=== PATIENT | female | born 1990 | race American Indian/Alaskan Native ===

== ENCOUNTER 2020-08-20 16:17 | Emergency (ER) | payer OTHER ==
[2020-08-20 17:08] VITALS: BP 113/75
[2020-08-20] MEDS ORDERED: ACETAMINOPHEN 500 MG TAB PO ONE (20:05)
[2020-08-20 20:16] LABS: Basophils # (Auto) 0.1 K/mm3 (0.0-0.1); Basophils % (Auto) 0.9 % (0.0-1.8); Eosinophils # (Auto) 0.2 K/mm3 (0.0-0.4); Eosinophils % (Auto) 3.3 % (0.0-4.3); Hematocrit 39.8 % (30.3-42.9); Hemoglobin 13.3 gm/dl (10.1-14.3); Lymphocytes # (Auto) 2.7 K/mm3 (1.2-5.4); Lymphocytes % (Auto) 42.2 % (13.4-35.0); Mean Corpuscular HGB Conc 33 % (30-34); Mean Corpuscular Volume 87 fl (79-97); Monocytes # (Auto) 0.8 K/mm3 (0.0-0.8); Monocytes % (Auto) 12.8 % (0.0-7.3); Platelet Count 307 K/mm3 (140-440); Red Blood Count 4.58 M/mm3 (3.65-5.03); Red Cell Distribution Width 14.1 % (13.2-15.2)
[2020-08-20 20:26] LABS: Bacteria,Urine 2+ /HPF (Negative); Bilirubin,Urine NEG (Negative); Blood,Urine NEG (Negative); Color,Urine Yellow (Yellow); Mucus,Urine 3+ /HPF
[2020-08-20 20:28] LABS: HCG Qualitative,Urine Negative (Negative)
[2020-08-20 20:47] LABS: Alanine Aminotransferase 28 units/L (7-56); Albumin 4.1 g/dL (3.9-5); Blood Urea Nitrogen 12 mg/dL (7-17); Hemolysis Index 10
[2020-08-20 20:58] LABS: BUN/Creatinine Ratio 17
--- NOTE | 2020-08-20 21:07 | Emergency Department Report ---
ED Abdominal Pain HPI - General Chief Complaint: Abdominal Pain Stated Complaint: ABD PAIN Source: patient Mode of arrival: Ambulatory Limitations: No Limitations - History of Present Illness Initial Comments: Patient is a 30-year-old -Algerian female with no past medical history presents to the ED with complaint of acute onset persistent diffuse low abdominal pain for the last 2 days. Patient states that the symnptoms have gotten worse in the last 12 hours. Patient states that she has not had any bowel movement in 2 days. Patient denies dyspnea, nausea, vomiting, diarrhea, chest pain, dysuria, urinary urgency and frequency, vaginal bleeding, fever and chills or vaginal bleeding. MD Complaint: abdominal pain (diffuse lower abdominal pain), other (constipation) -: Sudden, days(s) (2) Location: suprapubic Radiation: suprapubic Migration to: no migration Severity: severe Severity scale (0 -10): 7 Quality: cramping, aching Consistency: constant Improves With: nothing Worsens With: nothing Context: other (maybe constipated) Associated Symptoms: denies other symptoms, constipation, anorexia. denies: nausea, vomiting, diarrhea, fever, dysuria, hematemesis, hematochezia, melena, hematuria, syncope - Related Data LMP (females 10-50): 3 weeks Previous Rx's Medication Instructions Recorded Last Taken Type Dicyclomine [Bentyl] 20 mg PO Q6H PRN #24 tablet 08/20/20 Unknown Rx Docusate Sodium [Dok] 100 mg PO Q12H #60 tablet 08/20/20 Unknown Rx Magnesium Citrate [Citrate of 296 ml PO ONCE #1 bottle 08/20/20 Unknown Rx Magnesia] Sulfamethoxazole/Trimethoprim 1 each PO Q12H #20 tablet 08/20/20 Unknown Rx [Bactrim DS TAB] Allergies Allergy/AdvReac Type Severity Reaction Status Date / Time No Known Allergies Allergy Unverified 08/20/20 17:06 ED Review of Systems ROS: Stated complaint: ABD PAIN Other details as noted in HPI Constitutional: denies: chills, fever Eyes: denies: eye pain, eye discharge, vision change ENT: denies: ear pain, throat pain Respiratory: denies: cough, shortness of breath, wheezing Cardiovascular: denies: chest pain, palpitations Endocrine: no symptoms reported Gastrointestinal: abdominal pain, constipation. denies: nausea, vomiting, diarrhea Genitourinary: denies: urgency, dysuria, discharge Musculoskeletal: denies: back pain, joint swelling, arthralgia Skin: denies: rash, lesions Neurological: denies: headache, weakness, paresthesias Psychiatric: denies: anxiety, depression Hematological/Lymphatic: denies: easy bleeding, easy bruising ED Past Medical Hx - Past Medical History Previous Medical History?: No - Surgical History Past Surgical History?: No - Medications Home Medications: Home Medications Medication Instructions Recorded Confirmed Last Taken Type Dicyclomine [Bentyl] 20 mg PO Q6H PRN #24 tablet 08/20/20 Unknown Rx Docusate Sodium [Dok] 100 mg PO Q12H #60 tablet 08/20/20 Unknown Rx Magnesium Citrate [Citrate of 296 ml PO ONCE #1 bottle 08/20/20 Unknown Rx Magnesia] Sulfamethoxazole/Trimethoprim 1 each PO Q12H #20 tablet 08/20/20 Unknown Rx [Bactrim DS TAB] ED Physical Exam - General Limitations: No Limitations General appearance: alert, in no apparent distress - Head Head exam: Present: atraumatic, normocephalic, normal inspection - Eye Eye exam: Present: normal appearance, PERRL, EOMI. Absent: scleral icterus, periorbital swelling, periorbital tenderness Pupils: Present: normal accommodation - ENT ENT exam: Present: normal exam, normal orophraynx, mucous membranes moist, TM's normal bilaterally, normal external ear exam - Neck Neck exam: Present: normal inspection, full ROM - Respiratory Respiratory exam: Present: normal lung sounds bilaterally. Absent: respiratory distress, wheezes, rales, rhonchi, chest wall tenderness, accessory muscle use, decreased breath sounds, prolonged expiratory - Cardiovascular Cardiovascular Exam: Present: regular rate, normal rhythm, normal heart sounds. Absent: systolic murmur, diastolic murmur, rubs, gallop - GI/Abdominal GI/Abdominal exam: Present: soft, tenderness (Palpable mild suprapubic tenderness), normal bowel sounds. Absent: guarding, rebound, hyperactive bowel sounds, hypoactive bowel sounds, organomegaly - Extremities Exam Extremities exam: Present: normal inspection, full ROM, normal capillary refill - Back Exam Back exam: Present: normal inspection, full ROM. Absent: tenderness, CVA tenderness (R), CVA tenderness (L), muscle spasm, paraspinal tenderness, vert ebral tenderness - Neurological Exam Neurological exam: Present: alert, oriented X3, CN II-XII intact, normal gait, reflexes normal - Psychiatric Psychiatric exam: Present: normal affect, normal mood - Skin Skin exam: Present: warm, dry, intact, normal color. Absent: rash ED Course Vital Signs 08/20/20 08/20/20 17:06 20:10 Temperature 98.2 F Pulse Rate 83 Respiratory 18 18 Rate Blood Pressure 113/75 [Right] O2 Sat by Pulse 100 Oximetry ED Medical Decision Making - Lab Data Result diagrams: 08/20/20 19:58 08/20/20 19:58 - Radiology Data Radiology results: report reviewed, image reviewed [facility] [address] [place] [address] XRay Report Signed Patient: FANY BEACH MR#: [id number] : 1990 Acct:[id number] Age/Sex: 30 / F ADM Date: 08/20/20 Loc: ED Attending Dr: Ordering Physician: RASHEEDA PANCHAL Date of Service: 08/20/20 Procedure(s): XR abdomen 2V Accession Number(s): [id number] cc: RASHEEDA PANCHAL Fluoro Time In Minutes: ABDOMEN 2 VIEWS INDICATION / CLINICAL INFORMATION: Abdominal pain - constipation. COMPARISON: None available. FINDINGS: TUBES / LINES: None. BOWEL GAS PATTERN: No significant abnormality. Stool is seen throughout the colon. FREE AIR / EXTRALUMINAL GAS: None seen. ADDITIONAL FINDINGS: No significant additional findings. CHEST: Visualized chest shows no significant abnormality. IMPRESSION: 1. No significant abnormality. Signer Name: Deepthi Aldrich MD Signed: 08/20/2020 9:04 PM Workstation Name: [id number] Transcribed By: SS Dictated By: DEEPTHI ALDRICH Electronically Authenticated By: DEEPTHI ALDRICH Signed Date/Time: 08/20/202103 DD/ 02 TD/TT: - Medical Decision Making This is a 30-year-old -Algerian female with no past medical history presents to the ED with complaint of acute onset persistent diffuse low abdominal pain for the last 2 days. Patient states that the symnptoms have gotten worse in the last 12 hours. Patient states that she has not had any bowel movement in 2 days. In the ED, patient is alert and oriented x3 and is not in any distress. Lab test results were reviewed and are all nonactionable. Patient was treated for pain in the ED and abdomen KUB x-ray showed significant diffuse colonic stool consistent with constipation. Urinalysis however shows mild urinary tract infection. Patient discharged home on medications and advised to follow-up with her primary care physician in 5 to 7 days for reevalu ation. Patient advised return to the ED immediately if symptoms get worse. - Differential Diagnosis UTI; ; Constipation; Dysmenorrhea; Ovarian cyst; PID Critical care attestation.: If time is entered above; I have spent that time in minutes in the direct care of this critically ill patient, excluding procedure time. ED Disposition Clinical Impression: Acute urinary tract infection Abdominal pain Qualifiers: Abdominal location: lower abdomen, unspecified Qualified Code(s): R10.30 - Lower abdominal pain, unspecified Constipation Qualifiers: Constipation type: other constipation type Qualified Code(s): K59.09 - Other constipation Disposition: DC- TO HOME OR SELFCARE Is pt being admited?: No Does the pt Need Aspirin: No Condition: Stable Instructions: Constipation, Adult, [id number], Urinary Tract Infection, Adult, [id number], Abdominal Pain, Adult, [id number], Abdominal Pain (ED) Additional Instructions: Lab test results were reviewed and are all nonactionable except for urinalysis that showed mild urinary tract infection. The abdomen KUB x-ray showed significant diffuse colonic stool burden consistent with constipation. Therefore take medications with food, drink plenty of fluids and follow-up with her primary care physician in 5 to 7 days for reevaluation. Return to the ED immediately if symptoms get worse. Prescriptions: Sulfamethoxazole/Trimethoprim [Bactrim DS TAB] 1 each PO Q12H #20 tablet Dicyclomine [Bentyl] 20 mg PO Q6H PRN #24 tablet PRN Reason: abdominal pain Magnesium Citrate [Citrate of Magnesia] 296 ml PO ONCE #1 bottle Docusate Sodium [Dok] 100 mg PO Q12H #60 tablet Referrals: [facility] [Provider Group] - 3-5 Days Forms: Work/School Release Form(ED) Time of Disposition: 21:07 Print Language: ANGUILLAN
== END 2020-08-20 21:30 | disposition home or self-care (01) ==
LOC: ED 16:17
DX: N39.0 Urinary tract infection, site not specified (principal); K59.00 Constipation, unspecified; R10.30 Lower abdominal pain, unspecified; Z79.899 Other long term (current) drug therapy
CPT/HCPCS: 36415; 74019; 80053; 81001; 81025; 85025; 87086